=== PATIENT | female | born 1960 | race African-American/Black ===

== ENCOUNTER 2018-09-14 16:04 | Emergency (ER) | payer SELFPAY ==
[~2018-09-14] VITALS: Ht 160 cm; Wt 53.0 kg
[2018-09-14 16:11] VITALS: Ht 160 cm; Wt 53.0 kg
[2018-09-14] MEDS ORDERED: IBUPROFEN 600 MG TAB PO ONE (20:00)
--- NOTE | 2018-09-14 20:17 | ERD ---
ER Documentation Chief Complaint Chief Complaint LEFT ANTERIOR FOOT PAIN, "CRAMPING LIKE" NO DEFORMITY OR TRAUMA HPI This is a 57-year-old female with a nonsignificant past medical history presents ED with complaints of left anterior foot pain that started this morning. Patient states that she dropped her phone on her foot started experiencing pain afterwards. Patient admits to painful range of motion of foot and also states that she has difficulty walking due to pain. Denies tingling, numbness, lack sensation, fever, chills or history of IV drug abuse. Admits to smoking. ROS All systems reviewed and are negative except as per history of present illness. PMhx/Soc Medical and Surgical Hx: pt denies Medical Hx, pt denies Surgical Hx Hx Alcohol Use: Yes (socially) Hx Substance Use: No Hx Tobacco Use: Yes Smoking Status: Current every day smoker FmHx Family History: No diabetes Physical Exam Vitals Vital Signs Date Temp Pulse Resp B/P (MAP) Pulse Ox O2 O2 Flow FiO2 Time Delivery Rate 09/14/18 98.3 65 16 141/81 100 16:11 (101) Physical Exam Const: No acute distress Head: Atraumatic Eyes: Normal Conjunctiva ENT: Normal External Ears, Nose and Mouth. Neck: Full range of motion. No meningismus. Resp: Clear to auscultation bilaterally Cardio: Regular rate and rhythm, no murmurs Ext: No cyanosis, or edema Lower Extremity -left Skin: No laceration, swelling or evidence of external trauma Compartments: Soft Motor: Full active range of motion hip/knee/ankle/foot Sensation: Intact to light touch FDWS/MF/LF/P surfaces. Bones: Moderate tenderness palpation along anterior forefoot, nontender pelvis/knee/proximal tibia/ malleoli Joints: No effusion or laxity Pulses/Perfusion: 2+ DP, Capillary refill < 2 seconds Neur: Awake and alert Psych: Normal Mood and Affect Results 24 hrs Current Medications Medications Dose Sig/Saloni Start Time Status Last (Trade) Ordered Route PRN Stop Time Admin Dose Reason Admin Ibuprofen 600 mg ONCE ONCE 09/14/18 DC 09/14/18 (Motrin) PO 20:00 19:42 09/14/18 20:01 Procedures/MDM EKG, MONITORS, & DIAGNOSTIC IMAGING: [address] [address] Radiology Main Line: [phone] DIAGNOSTIC IMAGING REPORT Patient: MEJIA ROSAS : 1960 Age: 57 Sex: F MR #: [id number] DOS: 09/14/182032 Ordering MD: CONRADO ROJAS PA-C Location: [facility] Room/Bed: PROCEDURE: XR Ankle. CLINICAL INDICATION: Pain TECHNIQUE: AP, oblique and lateral views of the left ankle were performed. COMPARISON: None. FINDINGS: There is normal mineralization and alignment. No acute fracture or osseous lesion is identified. There is mild joint space narrowing in the tibiotalar joint. The soft tissues are unremarkable. 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 .Osmin Edmonds MD, MD Date Time Electronically viewed and signed by .Osmin Edmonds MD, on 09/14/2018 21:40 .S/ CC: CONRADO ROJAS PA-C [id number] [place] [address] Radiology Main Line: [phone] DIAGNOSTIC IMAGING REPORT Patient: MEJIA ROSAS : 1960 Age: 57 Sex: F MR #: [id number] DOS: 09/14/181932 Ordering MD: CONRADO ROJAS PA-C Location: [facility] Room/Bed: PROCEDURE: XR Foot. CLINICAL INDICATION: Pain TECHNIQUE: AP, lateral and oblique views of the left foot was obtained. The images were reviewed on a PACS workstation. COMPARISON: None. FINDINGS: The bones of the foot appear intact, with no evidence of fracture, dislocation, or subluxation. The joint spaces are preserved. The bone mineralization is normal. No significant soft tissue swelling is seen. RPTAT: AA IMPRESSION: Unremarkable left foot radiographs. .Osmin Edmonds MD, MD Date Time Electronically viewed and signed by .Osmin Edmonds MD, MD on 09/14/2018 21:41 .S/ CC: AILYN ROJASBao CASE [id number] ER COURSE: The patient was given [ibuprofen The medication was well tolerated and the patient reports improvement in symptoms. The patient was stable throughout ED course. I kept the patient and/or family informed of laboratory and diagnostic imaging results throughout the emergency room course. The patient was promptly evaluated and a treatment plan was devised based on H&P and other data. This plan was discussed with the patient who agreed and had no further questions or concerns prior to discharge. MEDICAL DECISION MAKING: This is a 57-year-old female presents ED with complaints of left foot pain since this morning. Patient dropped phone on foot earlier today. X-rays are unremarkable for fracture or dislocation. This is likely contusion. Given patient's difficulty walking patient was given Thor wrap and crutches. Advised to rice. History and physical examination other data not consistent with emergent processes including but not limited to fracture, dislocation, tendon rupture, ischemia, neurovascular injury, compartment syndrome, septic joint, avascular necrosis, osteomyelitis, necrotizing fasciitis, septic joint, septic arthritis, or other emergent conditions. Patient's vitals are stable and can be managed outpatient with close follow-up. Advised patient to follow-up with primary care in the next 48 hours. Return to ED with any worsening symptoms. DISPOSITION PLAN: We discussed follow up with the patient's primary care doctor within 24 to 48 hours. Patient counseled regarding my diagnostic impression and care plan. Prior to discharge all questions answered. Pt agrees with treatment plan and understands strict return precautions. Precautionary instructions provided including instructions to return to the ER if not improving or for any worsening or changing symptoms or concerns. SPECIALIST FOLLOW UP RECOMMENDED: None Patient has been advised to follow up with primary care in 1-2 days. Disclaimer: Inadvertent spelling and grammatical errors are likely due to EHR/dictation software use and do not reflect on the overall quality of patient care. Also, please note that the electronic time recorded on this note does not necessarily reflect the actual time of the patient encounter. Blood Pressure Assessment: Patient's blood pressure was elevated (>120/80) but appears stable without evidence of hypertension emergency or urgency. The manny ent was counseled about the risks of hypertension and urged to pursue outpatient monitoring and therapy within a week with their primary care physician. Departure Diagnosis: Primary Impression: Foot pain Laterality: left Qualified Codes: M79.672 - Pain in left foot Condition: Stable Patient Instructions: Contusion, Foot, Sprain Foot Referrals: [facility] Additional Instructions: Patient advised to return to the ED immediately for new or worsening symptoms. Patient advised to follow up with primary care provider in the next 24-48 hours. Patient verbalized understanding and agrees with treatment plan and course of action. If patient has no primary care they may follow up with one of the community clinics listed on the following page or one of the options listed below [facility] [address] [place] [id number] or [facility] [address] [place] [address] or [facility] [address] [place] [address] CONRADO ROJAS PA-C Sep 14, 2018 20:17
[2018-09-14] MEDS ORDERED: IBUP-1542 PO (22:02)
[2018-09-14 22:17] VITALS: BP 134/76; PULSE 76; RESP 16
== END 2018-09-14 22:17 | disposition home or self-care (01) ==
LOC: FTE 16:04
DX: M79.672 Pain in left foot (principal)
CPT/HCPCS: 73610